=== PATIENT | female | born 1950 | race Two or more races ===

== ENCOUNTER → 2016-05-30 | Outpatient (CLI) | payer BC | LOC: OD 16:14 | PROVIDERS: ATTEND Family Medicine | DX: M54.16 Radiculopathy, lumbar region (principal) | CPT/HCPCS: 72110 ==

== ENCOUNTER 2017-11-05 09:33 | Inpatient (IN) | payer BC, MEDICARE ==
--- NOTE | 2017-11-05 10:03 | ER Document Report ---
ED Psych Disorder / Suicide - General Chief Complaint: Psych Problem Stated Complaint: PSYCH EVAL Time Seen by Provider: 11/05/17 09:53 TRAVEL OUTSIDE OF THE [place] IN LAST 30 DAYS: No - HPI Notes: Patient with history of bipolar disorder, depression presents severely decompensated. Patient stopped taking her mood stabilizer medications approximately 2 days ago started having profound aberrant behavior has not slept in 2 days. 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 EMS arrived patient was acting continually aberrant behavior was given intramuscular haloperidol and diphenhydramine. Presents under involuntary commitment paperwork. - Related Data Allergies/Adverse Reactions: No Known Allergies Allergy (Unverified 11/05/17 09:45) Past Medical History - Social History Smoking Status: Unknown if Ever Smoked Family History: None Patient has suicidal ideation: No Patient has homicidal ideation: No Renal/ Medical History: Denies: Hx Peritoneal Dialysis Psychiatric Medical History: Reports: Hx Bipolar Disorder, Hx Depression Review of Systems - Review of Systems -: Yes ROS unobtainable due to patient's medical condition Physical Exam - Vital signs Vitals: Temp Pulse Resp BP Pulse Ox 98.4 F 87 16 127/66 H 92 11/05/17 09:36 11/05/17 09:36 11/05/17 09:36 11/05/17 09:36 11/05/17 09:36 - Notes Notes: PHYSICAL EXAMINATION: GENERAL: Well-appearing, well-nourished and in no acute distress. HEAD: Atraumatic, normocephalic. EYES: Pupils equal round and reactive to light, extraocular movements intact, sclera anicteric, conjunctiva are normal. ENT: nares patent, oropharynx clear without exudates. Moist mucous membranes. NECK: Normal range of motion, supple without lymphadenopathy LUNGS: Breath sounds clear to auscultation bilaterally and equal. No wheezes rales or rhonchi. HEART: Regular rate and rhythm without murmurs ABDOMEN: Soft, nontender, normoactive bowel sounds. No guarding, no rebound. No masses appreciated. EXTREMITIES: Normal range of motion, no pitting or edema. No cyanosis. NEUROLOGICAL: Cranial nerves grossly intact. Normal speech, normal gait. Normal sensory and motor exams. PSYCH: flattened effect SKIN: Warm, Dry, normal turgor, no rashes or lesions noted. Course - Re-evaluation Re-evalutation: 11/05/17 11:21 Will initiate involuntary commitment paperwork and the patient. All labs within normal limits no identifiable cause of the psychosis. 11/05/17 11:29 She did have a sodium approximately 150. Could be contributory to her altered mental status. IV established. Patient given fluid resuscitation will be admitted medically to the hospital IVC paperwork still in place. - Vital Signs Vital signs: Temp Pulse Resp BP Pulse Ox 98.4 F 87 16 127/66 H 92 11/05/17 09:36 11/05/17 09:36 11/05/17 09:36 11/05/17 09:36 11/05/17 09:36 - Laboratory Result Diagrams: 11/05/17 09:45 11/05/17 09:45 Laboratory results interpreted by me: 11/05/17 11/05/17 09:45 09:45 Seg Neutrophils % 80.1 H Lymphocytes % 11.9 L Sodium 149.2 H Potassium 3.4 L Chloride 109 H Carbon Dioxide 19 L Anion Gap 21 H BUN 27 H Direct Bilirubin 0.5 H AST 40 H Total Protein 8.6 H Discharge - Discharge Clinical Impression: Hypernatremia Psychosis Qualifiers: Psychosis type: other Qualified Code(s): F28 - Other psychotic disorder not due to a substance or known physiological condition Condition: Stable Disposition: ADMITTED INPATIENT Admitting Provider: Hospitalist - Dr. Kennedy Unit Admitted: Medical Floor Referrals: ODALYS CALVERT MD [Primary Care Provider] - Follow up as needed
[2017-11-05 10:22] LABS: ABSOLUTE LYMPHOCYTES (AUTO) 0.9 10^3/uL (0.5-4.7); ABSOLUTE MONOCYTES (AUTO) 0.6 10^3/uL (0.1-1.4); ABSOLUTE NEUT (AUTO) 5.8 10^3/uL (1.7-8.2); BASOPHILS % (AUTO) 0.2 % (0-2); HEMATOCRIT 37.5 % (36.0-47.0); HEMOGLOBIN 12.6 g/dL (12.0-15.5); LYMPHOCYTES % (AUTO) 11.9 % (13-45); MEAN CORPUSCULAR HEMOGLOBIN 28.9 pg (27.0-33.4); MEAN CORPUSCULAR HGB CONC 33.7 g/dL (32.0-36.0); MEAN CORPUSCULAR VOLUME 86 fl (80-97); MONOCYTES % (AUTO) 7.8 % (3-13); PLATELET COUNT 258 10^3/uL (150-450); RED BLOOD COUNT 4.36 10^6/uL (3.72-5.28); RED CELL DISTRIBUTION WIDTH 13.4 % (11.5-14.0); SEGMENTED NEUTROPHILS % (AUTO) 80.1 % (42-78); TOTAL CELLS COUNTED % (AUTO) 100 %; WHITE BLOOD COUNT 7.2 10^3/uL (4.0-10.5)
[2017-11-05 10:27] LABS: ALANINE AMINOTRANSFERASE 38 U/L (9-52); ALBUMIN 4.9 g/dL (3.5-5.0); ALKALINE PHOSPHATASE 83 U/L (38-126); ASPARTATE AMINO TRANSFERASE 40 U/L (14-36); BILIRUBIN,DIRECT 0.5 mg/dL (0.0-0.4); BILIRUBIN,TOTAL 0.8 mg/dL (0.2-1.3); BLOOD UREA NITROGEN 27 mg/dL (7-20); CHLORIDE 109 mmol/L (98-107); GLUCOSE 107 mg/dL (75-110); POTASSIUM 3.4 mmol/L (3.6-5.0); TOTAL PROTEIN 8.6 g/dL (6.3-8.2)
[2017-11-05 10:32] LABS: CARBON DIOXIDE 19 mmol/L (22-30); SODIUM 149.2 mmol/L (137-145)
[2017-11-05 10:34] LABS: ANION GAP 21 (5-19)
[2017-11-05] MEDS ORDERED: DEXTROSE 5%-NORMAL SALINE 1,000 ML IV ONE (11:28)
[2017-11-05] MEDS ORDERED: LORAZEPAM INJ 2 MG/1 ML VIAL IV ONE (12:20)
[2017-11-05] MEDS ORDERED: CLONIDINE 0.1 MG/24 HR PATCH.TDWK TD PRN ×2 (12:22→12:32)
--- NOTE | 2017-11-05 12:37 | PSYCHOLOGICAL NOTE ---
Psych Note - Psych Note Psych Note: Reason for Consult: Psychosis Patient's as at bedside Patient with history of bipolar disorder, depression presents severely decompensated. Patient was unable to engage in evaluation due to EMS needing intramuscular haloperidol and diphenhydramine because of the patient acting with continually aberrant behavior. Patient's discloses the patient had a "psychotic episode." He denies this is never happened before reports that the patient does have a diagnosis of bipolar however is been controlled for a "very long time." Patient has an outpatient mental health provider through [facility]. He discloses that she has been acting erratically since yesterday morning. He confirms the patient was trying to stop one of her medications and has been off for about 3 weeks. He continued to report that she has not taken any medication for the last 2 days since this episode started. No medication recommendations at this time Diagnosis 296.80 (F31.9) unspecified bipolar and related disorder per history provided by patient's Impression\\plan: Patient is recommended for IVC petition. Patient presented after 2 days of velia. reports this is the first time she is ever had a psychotic episode. She has been well maintained on her medications for many years. Patient has been admitted to the hospital for medical concerns. At this time, the patient will be reevaluated once she is medically stable to determine if this event is the result of a medical condition or if continued acute psychiatric services are needed. Dr. Centeno was consulted and the care and management of this patient; attending physician is agreement with recommendations and disposition.
--- NOTE | 2017-11-05 14:19 | EKG REPORT ---
SEVERITY:- ABNORMAL ECG - SINUS RHYTHM BORDERLINE ST DEPRESSION, LATERAL LEADS PROLONGED QT INTERVAL : Confirmed by: Sedrick Pagan MD 05-Nov-2017 14:18:30
--- NOTE | 2017-11-05 18:18 | PDOC H&P ---
History of Present Illness Admission Date/PCP: 11/05/17 11:57 ODALYS CALVERT MD Patient complains of: Agitation History of Present Illness: ARRON GODFREY is a 67 year old female with no significant past medical history aside from a history of depression and bipolar disorder who was brought in because of agitation. Patient has been on Effexor, trazodone and Lamictal for her bipolar disorder. According to patient's , patient verbally disorder has been well controlled however patient had poor compliance to her home regimen in the past 2 -3 weeks. Patient then started having erratic behavior last night. Patient was becoming agitated at home and was having flight of ideas. Patient also was banging on the floor at home and was rolling on the floor. She did have episodes of hearing voices. Patient received IM Haldol and Benadryl in route to the hospital. In the ER, upon encounter patient was noted to be agitated. She refused to be given IV fluids. She denied suicidal ideations but did continue to have flight of ideas. Past Medical History Psychiatric Medical History: Reports: Bipolar Disorder, Depression Social History Smoking Status: Unknown if Ever Smoked Family History Family History: None Parental Family History Reviewed: Yes - No premature CAD Children Family History Reviewed: No Sibling(s) Family History Reviewed.: No Medication/Allergy Home Medications: Hydrochlorothiazide [Hydrodiuril 12.5 mg Capsule] 12.5 mg PO DAILY 11/05/17 Lamotrigine [Lamictal] 150 mg PO BID 11/05/17 Metoprolol Succinate [Toprol Xl 50 mg Tab.sr] 50 mg PO BID 11/05/17 Trazodone HCl [Desyrel] 1 - 2 tab PO QHS 11/05/17 Venlafaxine HCl [Effexor Xr] 150 mg PO TID 11/05/17 Allergies/Adverse Reactions: No Known Allergies Allergy (Unverified 11/05/17 09:45) Review of Systems ROS unobtainable: Due to mental status Physical Exam Vital Signs: Temp Pulse Resp BP Pulse Ox 98.4 F 81 16 127/66 H 92 11/05/17 09:36 11/05/17 16:42 11/05/17 09:36 11/05/17 09:36 11/05/17 09:36 General appearance: PRESENT: other - Agitated Head exam: PRESENT: atraumatic, normocephalic Eye exam: PRESENT: conjunctiva pink, EOMI, PERRLA. ABSENT: scleral icterus Ear exam: PRESENT: normal external ear exam Neck exam: ABSENT: carotid bruit, JVD, lymphadenopathy, thyromegaly Respiratory exam: PRESENT: clear to auscultation harlan. ABSENT: rales, rhonchi, wheezes Cardiovascular exam: PRESENT: RRR. ABSENT: diastolic murmur, rubs, systolic murmur GI/Abdominal exam: PRESENT: normal bowel sounds, soft. ABSENT: distended, guarding, mass, organolmegaly, rebound, tenderness Rectal exam: PRESENT: deferred Neurological exam: PRESENT: alert, altered Focused psych exam: PRESENT: flight of ideas, paranoid, psychomotor agitation, restlessness Results Laboratory Results: 11/05/17 14:20 Lactic Acid 1.0 Assessment & Plan - Diagnosis (1) Psychosis Qualifiers: Psychosis type: other Qualified Code(s): F28 - Other psychotic disorder not due to a substance or known physiological condition Is this a current diagnosis for this admission?: Yes Plan: Patient currently has manic episode. She does have a long-standing history of bipolar disorder. Patient will be petition. Psych has been consulted. Noted that patient's QTC on EKG is prolonged at 512. Discussed with Dr. Centeno over the phone. We will hold off on Haldol for now. Will give Ativan as needed for severe agitation as well as a clonidine patch 0.1 as needed for agitation. Patient will need to go for inpatient psych. (2) Hypernatremia Is this a current diagnosis for this admission?: Yes Plan: Patient sodium is elevated as well as her chloride. She does appear clinically dry and is noted to have dry lips and oral mucosa. This is more consistent with dehydration. Patient will be given IV fluids. - Time Time Spent: 30 to 50 Minutes
[2017-11-05] MEDS ORDERED: POTASSIUM CHLORIDE 20 MEQ/50 ML RTU IV ONE (20:00)
[2017-11-05 21:29] LABS: APPEARANCE,URINE SLIGHTLY-CLOUDY; BILIRUBIN,URINE NEGATIVE (NEGATIVE); COLOR,URINE YELLOW; GLUCOSE, URINE NEGATIVE (NEGATIVE); KETONES,URINE 80 mg/dL (NEGATIVE); LEUKOCYTE ESTERASE,URINE MODERATE (NEGATIVE); NITRITE,URINE NEGATIVE (NEGATIVE); PROTEIN,URINE 30 mg/dL (NEGATIVE); UROBILINOGEN,URINE NEGATIVE mg/dL (<2.0)
[2017-11-05 21:48] LABS: URINE AMPHETAMINES SCREEN NEGATIVE; URINE BARBITURATES SCREEN NEGATIVE; URINE BENZODIAZEPINES SCREEN NEGATIVE; URINE COCAINE SCREEN NEGATIVE; URINE MARIJUANA (THC) SCREEN NEGATIVE; URINE METHADONE SCREEN NEGATIVE; URINE PHENCYCLIDINE SCREEN NEGATIVE
[2017-11-06 08:31] LABS: ABSOLUTE LYMPHOCYTES (AUTO) 1.9 10^3/uL (0.5-4.7); ABSOLUTE MONOCYTES (AUTO) 0.7 10^3/uL (0.1-1.4); ABSOLUTE NEUT (AUTO) 3.7 10^3/uL (1.7-8.2); BASOPHILS % (AUTO) 0.3 % (0-2); EOSINOPHILS % (AUTO) 0.7 % (0-6); HEMOGLOBIN 12.4 g/dL (12.0-15.5); LYMPHOCYTES % (AUTO) 29.4 % (13-45); MEAN CORPUSCULAR HEMOGLOBIN 29.3 pg (27.0-33.4); MEAN CORPUSCULAR HGB CONC 34.3 g/dL (32.0-36.0); MEAN CORPUSCULAR VOLUME 86 fl (80-97); MONOCYTES % (AUTO) 11.6 % (3-13); PLATELET COUNT 251 10^3/uL (150-450); RED BLOOD COUNT 4.21 10^6/uL (3.72-5.28); TOTAL CELLS COUNTED % (AUTO) 100 %; WHITE BLOOD COUNT 6.4 10^3/uL (4.0-10.5)
[2017-11-06 08:42] LABS: ANION GAP 16 (5-19); BLOOD UREA NITROGEN 16 mg/dL (7-20); CALCIUM 9.3 mg/dL (8.4-10.2); CARBON DIOXIDE 20 mmol/L (22-30); CHLORIDE 108 mmol/L (98-107); GLUCOSE 115 mg/dL (75-110); POTASSIUM 3.5 mmol/L (3.6-5.0); SODIUM 143.8 mmol/L (137-145)
[2017-11-06] MEDS ORDERED: POTASSIUM CHLORIDE 10 MEQ CAPSULE.ER PO ONE (10:00)
--- NOTE | 2017-11-06 10:58 | PDOC TRANSFER SUMMARY ---
General Admission Date/PCP: 11/05/17 11:57 AMBER CASTILLO MD - Transfer Diagnosis (1) Psychosis Is this a current diagnosis for this admission?: Yes (2) Hypernatremia Is this a current diagnosis for this admission?: Yes - Transfer Medications Home Medications: Hydrochlorothiazide [Hydrodiuril 12.5 mg Capsule] 12.5 mg PO DAILY 11/05/17 Lamotrigine [Lamictal] 150 mg PO BID 11/05/17 Metoprolol Succinate [Toprol Xl 50 mg Tab.sr] 50 mg PO BID 11/05/17 Trazodone HCl [Desyrel] 1 - 2 tab PO QHS 11/05/17 Venlafaxine HCl [Effexor Xr] 150 mg PO TID 11/05/17 Transfer Medications: Current Medications Clonidine HCl (Catapres-Tts 1 (0.1 Mg/24 Hr) Transderm Patch) 1 each TD ONCE PRN PRN Reason: ANXIETY/AGITATION Stop: 12/05/17 12:21 Last Admin: 11/05/17 13:23 Dose: 1 each - Allergies Allergies/Adverse Reactions: No Known Allergies Allergy (Unverified 11/05/17 09:45) Hospital Course Hospital Course: ARRON GODFREY is a 67 year old female with no significant past medical history aside from a history of depression and bipolar disorder who was brought in because of agitation. Patient has been on Effexor, trazodone and Lamictal for her bipolar disorder. According to patient's , patient verbally disorder has been well controlled however patient had poor compliance to her home regimen in the past 2 -3 weeks. Patient then started having erratic behavior last night. Patient was becoming agitated at home and was having flight of ideas. Patient also was banging on the floor at home and was rolling on the floor. She did have episodes of hearing voices. Patient received IM Haldol and Benadryl in route to the hospital. In the ER, upon encounter patient was noted to be agitated. She refused to be given IV fluids. She denied suicidal ideations but did continue to have flight of ideas. Patient did have paranoia and was fearful. EKG showed a prolonged QTc (512) and she was not given furhter Haloperidol. She did calm down with a dose of Ativan. Overnight, patient continued to be paranoid. She started become somewhat fearful of her . Repeat EKG showed improved QTs of 488 today. Patient will be transferred to [facility] for inpatient psych treatment. Physical Exam Vital Signs: Temp Pulse Resp BP Pulse Ox 97.9 F 100 20 137/69 H 98 11/05/17 23:09 11/06/17 07:00 11/05/17 23:09 11/05/17 23:09 11/05/17 23:09 Intake & Output 11/05/17 11/06/17 11/07/17 06:59 06:59 06:59 Intake Total 1930 Output Total 100 Balance 1830 Weight 189 lb 2.506 oz General appearance: PRESENT: other - patient is appears anxious and fearful Head exam: PRESENT: atraumatic, normocephalic Eye exam: PRESENT: conjunctiva pink, EOMI, PERRLA. ABSENT: scleral icterus Respiratory exam: PRESENT: clear to auscultation harlan. ABSENT: rales, rhonchi, wheezes Cardiovascular exam: PRESENT: RRR. ABSENT: diastolic murmur, rubs, systolic murmur GI/Abdominal exam: PRESENT: normal bowel sounds, soft. ABSENT: distended, guarding, mass, organolmegaly, rebound, tenderness Rectal exam: PRESENT: deferred Psychiatric exam: PRESENT: other - Patient appears anxious and fearful. Results Laboratory Results: 11/06/17 06:39 11/06/17 06:39 11/05/17 11/05/17 11/06/17 14:20 20:30 06:39 WBC 6.4 RBC 4.21 Hgb 12.4 Hct 36.0 MCV 86 MCH 29.3 MCHC 34.3 RDW 14.0 Plt Count 251 Seg Neutrophils % 58.0 Lymphocytes % 29.4 Monocytes % 11.6 Eosinophils % 0.7 Basophils % 0.3 Absolute Neutrophils 3.7 Absolute Lymphocytes 1.9 Absolute Monocytes 0.7 Absolute Eosinophils 0.0 Absolute Basophils 0.0 Sodium Potassium Chloride Carbon Dioxide Anion Gap BUN Creatinine Est GFR ( Amer) Est GFR (Non-Af Amer) Glucose Lactic Acid 1.0 Calcium Urine Color YELLOW Urine Appearance SLIGHTLY-CLOUDY Urine pH 5.0 Ur Specific [place] 1.020 Urine Protein 30 H Urine Glucose (UA) NEGATIVE Urine Ketones 80 H Urine Blood NEGATIVE Urine Nitrite NEGATIVE Ur Leukocyte Esterase MODERATE H Urine WBC (Auto) 62 Urine RBC (Auto) 5 11/06/17 06:39 WBC RBC Hgb Hct MCV MCH MCHC RDW Plt Count Seg Neutrophils % Lymphocytes % Monocytes % Eosinophils % Basophils % Absolute Neutrophils Absolute Lymphocytes Absolute Monocytes Absolute Eosinophils Absolute Basophils Sodium 143.8 Potassium 3.5 L Chloride 108 H Carbon Dioxide 20 L Anion Gap 16 BUN 16 Creatinine 0.54 Est GFR ( Amer) > 60 Est GFR (Non-Af Amer) > 60 Glucose 115 H Lactic Acid Calcium 9.3 Urine Color Urine Appearance Urine pH Ur Specific [place] Urine Protein Urine Glucose (UA) Urine Ketones Urine Blood Urine Nitrite Ur Leukocyte Esterase Urine WBC (Auto) Urine RBC (Auto) 11/06/17 06:39 NT-Pro-B Natriuret Pep 4220 H
[2017-11-06 11:06] VITALS: BP 142/60
--- NOTE | 2017-11-06 13:01 | EKG REPORT ---
SEVERITY:- ABNORMAL ECG - SINUS TACHYCARDIA ABNRM R PROG, CONSIDER ASMI OR LEAD PLACEMENT MINIMAL ST DEPRESSION, LATERAL LEADS BORDERLINE PROLONGED QT INTERVAL : Confirmed by: Sedrick Pagan MD 06-Nov-2017 13:01:25
--- NOTE | 2017-11-06 13:07 | PSYCHOLOGICAL NOTE ---
Psych Note - Psych Note Psych Note: Reason for Consult: Psychosis Patient's as at bedside Patient with history of bipolar disorder, depression presents severely decompensated. Diagnosis 296.80 (F31.9) unspecified bipolar and related disorder per history provided by patient's Impression\plan: Patient is recommended for continued IVC. Patient was medically cleared this morning. She was accepted to [facility] and transportation occurred today. Dr. Centeno was consulted and the care and management of this patient; attending physician is agreement with recommendations and disposition.
== END 2017-11-06 13:17 | DRG 885 ==
LOC: ER 09:33 → EH 11:57 → UNDOADMIN 11:57 → 3N 16:41
PROVIDERS: ADMIT Internal Medicine; ATTEND Internal Medicine
DX: F28 Other psychotic disorder not due to a substance or known physiological condition (principal); E87.0 Hyperosmolality and hypernatremia; E86.0 Dehydration; F31.9 Bipolar disorder, unspecified; Z79.899 Other long term (current) drug therapy
CPT/HCPCS: 36415; 80048; 80053; 80307; 81001; 83605; 83880; 85025; 93005; 93010; 99285; J2060; J3480; J3490

== ENCOUNTER → 2018-06-28 | Outpatient (CLI) | payer BC, MEDICARE ==
--- NOTE | 2018-06-29 09:06 | WOMENS IMAGING REPORT ---
EXAM DESCRIPTION: 3D SCREENING MAMMO BILAT COMPLETED DATE/TIME: 06/28/2018 3:42 pm REASON FOR STUDY: Z12.31 ENCOUNTER FOR SCREENING MAMMOGRAM FOR MALIGNANT NEOPLASM OF BREAST Z12.31 ENCNTR SCREEN MAMMOGRAM FOR MALIGNANT NEOPLASM OF MERA COMPARISON: 05/19/2016 and 11/15/2014. TECHNIQUE: Standard craniocaudal and mediolateral oblique views of each breast recorded using digita l acquisition and breast tomosynthesis. LIMITATIONS: None. FINDINGS: No masses, calcifications or architectural distortion. No areas of suspicion. Read with the assistance of CAD. .[facility] - R2 [employer] Version 1.3 .[facility] Imaging - R2 Cenova Version 2.1 .[facility] Imaging - R2 Cenova Version 2.4 .[facility] - R2 Cenova Version 2.4 .[facility] - R2 Pediatric Pathologist Version 9.2 IMPRESSION: NORMAL MAMMOGRAM. BIRADS 1. BREAST DENSITY: b. There are scattered areas of fibroglandular density. BIRAD: 1 NEGATIVE RECOMMENDATION: ROUTINE SCREENING COMMENT: The patient has been notified of the results by letter per SA requirements. Additional no tification policies are in place for contacting patient with suspicious or incomplete findings. Quality ID #[id number]: The [employer] recommends an annual screening mammogram for women aged 40 years or over. This facility utilizes a reminder system to ensure that all patients receive reminder letters, and/or direct phone calls for appointments. This includes reminders for routine scr eening mammograms, diagnostic mammograms, or other Breast Imaging Interventions when appropriate. Th is patient will be placed in the appropriate reminder system. The [employer] (A[employer]) has developed recommendations for screening MRI of the breast s in certain patient populations, to be used in conjunction with mammography. Breast MRI surveillanc e may be appropriate for women with more than 20% lifetime risk of developing breast cancer as deter mined by genetic testing, significant family history of the disease, or history of mantle radiation f or Hodgkins Disease. ACR Practice Guidelines 2008. DBT Technology DBT is a type of tomographic mammography. With conventional mammography, overlapping breast tissue ma y make lesions difficult to detect, even with good compression. DBT uses an x-ray tube that rotates a round the breast, taking images at different angles. These images are then combined to create thin sl ices of the breast that the radiologist can view as a 3D reconstruction. The [employer] unit can perform full-field digital mammograms (2D imaging); or DBT (3D imaging); or both, in a combination mode that quickly performs both the mammogram and the tomosynthesis scan while the breast is still compressed. PQRS 6045F: Fluoroscopic imaging is not utilized for breast tomosynthesis. TECHNICAL DOCUMENTATION: FINDING NUMBER: (1) ASSESSMENT: (1) JOB ID: [id number] [employer]- All Rights Reserved Reading location - IP/workstation name: [email or web address]
== END ==
LOC: WI 15:20
PROVIDERS: ATTEND Family Medicine
DX: Z12.31 Encounter for screening mammogram for malignant neoplasm of breast (principal); Z78.0 Asymptomatic menopausal state
CPT/HCPCS: 77063; 77067